=== PATIENT | female | born 1980 | race Caucasian/White ===

== ENCOUNTER 2017-05-27 14:44 | Emergency (ER) | payer MEDICAID ==
[~2017-05-27] VITALS: Ht 152.4 cm; Wt 74.1 kg
[2017-05-27] MEDS ORDERED: PROPARACAINE HCL 0.5% 15 ML OPHTHALMIC SOLUTION OS ONE (17:30)
[2017-05-27 19:52] VITALS: BP 111/82
== END 2017-05-27 19:56 | disposition home or self-care (01) ==
LOC: EMS 14:44
DX: H57.12 Ocular pain, left eye (principal); L56.8 Other specified acute skin changes due to ultraviolet radiation
CPT/HCPCS: 99283